=== PATIENT | female | born 1965 | race Caucasian/White ===

== ENCOUNTER → 2018-03-14 10:48 | Outpatient (CLI) | payer BC, SELFPAY ==
--- NOTE | 2018-03-14 11:02 | MM_ITS ---
MM Dig screening mamm BI w/CAD ORDERING PHYSICIAN : Rodrigo Staples MD PATIENT AGE: 52 years GENDER: Female COMPARISON: February 2017,[facility] August 2014, June 2013. [facility] INDICATION: ITS.REASON: ROUTINE routine screening. Patient's takes 'OTC estroven'. Postmenopausal with last period May 2017. No new complaints. Noncontributory family history TECHNIQUE: Standard CC and MLO images were obtained. R2 CAD reviewed. FINDINGS: Mild/moderate residual fibroglandular tissue RIGHT BREAST no significant change since studies dating back to 2014. Stable parenchymal pattern :Areas minimal areas of focal density seen at the right breast appears unchanged since studies dating back to 2014 but no significant new areas of concern LEFT BREAST:Stable left breast with no new areas of concern. Bilateral follow-up one year adequate and recommended IMPRESSION:...... Stable mammogram No significant interval change no significant new findings Bilateral follow-up in one year. BI-RADS Category: 2 Benign Finding(s) RECOMMENDED FOLLOW-UP: 1YR 1 YEAR FOLLOW-UP (A letter has been sent to the patient regarding results of the study.)
== END ==
PROVIDERS: PCP Family Medicine; Visit Provider Family Medicine
DX: Z12.31 Encounter for screening mammogram for malignant neoplasm of breast (principal)
CPT/HCPCS: 77067